=== PATIENT | female | born 1960 | race African-American/Black ===

== ENCOUNTER 2019-09-21 07:32 | Emergency (ER) | payer OTHER, SELFPAY ==
--- NOTE | 2019-09-21 08:00 | EDPHYS ---
Physician Documentation [facility] Name: Mary Mcmanus Age: 59 yrs Sex: Female : 1960 Arrival Date: 09/21/2019 Time: 07:36 Bed 19 Private MD: out of town, doctor ED Physician Narciso Colmenares HPI: 09/20 07:54 This 59 yrs old Black Female presents to ER via Ambulatory with complaints of Urinary cp Problem. 07:54 The patient presents with urinary symptoms, dysuria, hematuria. Onset: The cp symptoms/episode began/occurred 3 day(s) ago, and became worse last night. Associated signs and symptoms: Pertinent negatives: diarrhea, fever, nausea, vomiting, abdominal pain, back pain. Severity of symptoms: in the emergency department the symptoms are unchanged, despite home interventions. Historical: - Allergies: 07:47 No Known Allergies; ss - PMHx: 07:47 Hypertension; High Cholesterol; Diabetes; ss - Immunization history:: Adult Immunizations up to date. - Social history:: Smoking status: Patient denies any tobacco usage or history of. ROS: 07:55 Eyes: Negative for injury, pain, redness, and discharge. cp 07:55 Constitutional: Negative for body aches, chills, fever, poor PO intake. 07:55 Cardiovascular: Negative for chest pain. 07:55 Respiratory: Negative for cough, shortness of breath, wheezing. 07:55 Abdomen/GI: Negative for abdominal pain, nausea, vomiting, and diarrhea. 07:55 Back: Negative for pain at rest, pain with movement. 07:55 : Positive for hematuria, burning with urination. 07:55 All other systems are negative. Exam: 07:57 Head/Face: Normocephalic, atraumatic. cp 07:57 Constitutional: The patient appears in no acute distress, alert, awake, comfortable, non-toxic, well developed, well nourished. 07:57 Cardiovascular: Rate: normal. 07:57 Respiratory: the patient does not display signs of respiratory distress, Respirations: normal. 07:57 Abdomen/GI: Inspection: abdomen appears normal. 07:57 Back: CVA tenderness, is absent. Vital Signs: 07:46 BP 161 / 83; Pulse 75; Resp 16; Temp 98.6; Pulse Ox 100% on R/A; Weight 90.72 kg; em Height 5 ft. 4 in. (162.56 cm); Pain 0/10; 08:10 BP 153 / 74; em 07:46 Body Mass Index 34.33 (90.72 kg, 162.56 cm) em MDM: 07:42 Patient medically screened. cp 07:58 Differential diagnosis: urinary tract infection, pyelonephritis, sepsis. cp 07:59 Data reviewed: vital signs, nurses notes, lab test result(s), and as a result, I will cp discharge patient. 09/20 07:51 Order name: Urine Microscopic Only cp 09/20 07:58 Order name: Urine Dipstick--Ancillary (enter results) eb 09/20 07:51 Order name: Urine Dipstick-Ancillary (obtain specimen); Complete Time: 07:51 cp Administered Medications: No medications were administered Disposition: 10:50 Co-signature as Attending Physician, Narciso Colmenares MD I agree with the assessment and kdr plan of care. Disposition: 09/21/19 07:59 Discharged to Home. Impression: Urinary tract infection, site not specified. - Condition is Stable. - Discharge Instructions: Urinary Tract Infection, Adult. - Prescriptions for Pyridium 200 mg Oral Tablet - take 1 tablet by ORAL route every 8 hours for 3 days; 6 tablet. Bactrim DS 800- 160 mg Oral Tablet - take 1 tablet by ORAL route every 12 hours for 5 days; 10 tablet. - Medication Reconciliation Form, Thank You Letter, Antibiotic Education, Prescription Opioid Use form. - Follow up: Private Physician; When: 2 - 3 days; Reason: Worsening of condition. - Problem is new. - Symptoms have improved. Signatures: Dispatcher [employer] Narciso Coffey MD MD [facility] Vick Lombardo RN RN Ashley Rock RN RN Taqueria Chanel PA PA cp Corrections: (The following items were deleted from the chart) 08: 07:59 09/21/2019 07:59 Discharged to Home. Impression: Urinary tract infection, site em not specified. Condition is Stable. Forms are Medication Reconciliation Form, Thank You Letter, Antibiotic Education, Prescription Opioid Use. Follow up: Private Physician; When: 2 - 3 days; Reason: Worsening of condition. Problem is new. Symptoms have improved. cp
--- NOTE | 2019-09-21 08:00 | ER ---
Nurse's Notes [facility] Name: Mary Mcmanus Age: 59 yrs Sex: Female : 1960 Arrival Date: 09/21/2019 Time: 07:36 Bed 19 Private MD: out of town, doctor Diagnosis: Urinary tract infection, site not specified Presentation: 09/20 07:46 Chief complaint: Patient states: Intermittent blood in urine x 3 days. Pt reports at first it was coffee colored, but now it's pink/red. Denies pain/ fever. Coronavirus screen: Proceed with normal triage. Patient denies a cough. Patient denies shortness of breath or difficulty breathing. Patient denies measured and/or subjective temperature greater than 100.4F prior to today's visit. Patient denies travel on a cruise ship or to a country the [facility] currently lists as an affected area. Patient denies contact with known and/or suspected case of COVID-19. Ebola Screen: Patient denies exposure to infectious person. Patient denies travel to an Ebola-affected area in the 21 days before illness onset. Initial Sepsis Screen: Does the patient meet any 2 criteria? No. Patient's initial sepsis screen is negative. Does the patient have a suspected source of infection? No. Patient's initial sepsis screen is negative. Risk Assessment: Do you want to hurt yourself or someone else? Patient reports no desire to harm self or others. Onset of symptoms was September 2019. 07:46 Method Of Arrival: Ambulatory ss 07:46 Acuity: LEYLA 3 ss Historical: - Allergies: 07:47 No Known Allergies; ss - PMHx: 07:47 Hypertension; High Cholesterol; Diabetes; ss - Immunization history:: Adult Immunizations up to date. - Social history:: Smoking status: Patient denies any tobacco usage or history of. Screenin:48 Abuse screen: Denies threats or abuse. Denies injuries from another. Nutritional ss screening: No deficits noted. Tuberculosis screening: Never had TB. Fall Risk None identified. Assessment: 07:48 Reassessment: Patient ambulated to restroom to obtain urine specimen with steady gait. ss 07:50 General: Appears in no apparent distress. comfortable, Behavior is calm, cooperative, em appropriate for age, Denies fever. Pain: Denies pain. Neuro: Level of Consciousness is awake, alert, obeys commands, Oriented to person, place, time, situation, Appropriate for age. Cardiovascular: Capillary refill < 3 seconds Patient's skin is warm and dry. Respiratory: Airway is patent Respiratory effort is even, unlabored, Respiratory pattern is regular, symmetrical. GI: Abdomen is round non-distended. : Urine is slightly cloudy and yellow Reports burning with urination, since 2 days. Derm: Skin is intact, is healthy with good turgor, Skin is pink, warm \T\ dry. Musculoskeletal: Capillary refill < 3 seconds, Range of motion: intact in all extremities. Vital Signs: 07:46 BP 161 / 83; Pulse 75; Resp 16; Temp 98.6; Pulse Ox 100% on R/A; Weight 90.72 kg; em Height 5 ft. 4 in. (162.56 cm); Pain 0/10; 08:10 BP 153 / 74; em 07:46 Body Mass Index 34.33 (90.72 kg, 162.56 cm) em ED Course: 07:36 Patient arrived in ED. mr 07:36 out of town, doctor is Private Physician. mr 07:38 Taqueria Barksdale PA is PHCP. cp 07:38 Taqueria Chance MD is Attending Physician. cp 07:40 Vick Lombardo, KHRIS is Primary Nurse. em 07:42 Attending Physician role handed off by Taqueria Chance MD cp 07:42 Narciso Colmenares MD is Attending Physician. cp 07:47 Triage completed. ss 07:47 Arm band placed on right wrist. ss 07:48 Patient has correct armband on for positive identification. Bed in low position. ss 07:50 Urine collected: clean catch specimen, cloudy. em 08:09 No provider procedures requiring assistance completed. Patient did not have IV access em during this emergency room visit. Administered Medications: No medications were administered Outcome: 07:59 Discharge ordered by . cp 08:09 Discharged to home ambulatory. em 08:09 Condition: good 08:09 Discharge instructions given to patient, Instructed on discharge instructions, follow up and referral plans. medication usage, Demonstrated understanding of instructions, follow-up care, medications, Prescriptions given X 2. 08:11 Patient left the ED. em Addendum: 09/24/2019 07:35 Addendum: Culture Results: Positive urine culture. No further action required. Bacteria a a5 sensitive to prescribed antibiotic. Signatures: Amy ClarosVick, RN RN em Sindy Vyas, RN RN aa5 Ashley Null RN RN ss Taqueria Barksdale PA PA cp Corrections: (The following items were deleted from the chart) 09/20 07:56 07:46 Resp 16bpm; Temp 98.6F; 90.72 kg; Height 5 ft. 4 in.; BMI: 34.3; Pain 0/10; em
[2019-09-21 08:12] LABS: Urine Blood 3+ (NEG); Urine Glucose NEGATIVE (NEG); Urine Protein NEGATIVE (NEG); Urine Specific Gravity 1.015 (1.005-1.030); Urine pH 5.5 (5.0-7.0)
[2019-09-21 08:17] VITALS: TEMP 98.6; O2SAT 100
[2019-09-21 08:17] LABS: Urine Bacteria >50 /HPF (<20); Urine Culture Reflex Order REFLEXED; Urine RBC 20-50 /HPF (NONE SEEN)
[2019-09-21 08:18] VITALS: BP 153/74
== END 2019-09-21 08:11 | disposition home or self-care (01) ==
LOC: ER 07:32
DX: N39.0 Urinary tract infection, site not specified (principal)
CPT/HCPCS: 81003; 81015; 87077; 87086; 87088; 87186; 99283

== ENCOUNTER 2019-10-28 18:04 | Emergency (ER) | payer OTHER ==
[2019-10-28] MEDS ORDERED: KETOROLAC 30 MG/ML INJ ONE (20:47)
--- NOTE | 2019-10-28 20:50 | RAD REPORT ---
EXAM DESCRIPTION: RAD - Elbow Right 2 View - 10/28/2019 8:36 pm CLINICAL HISTORY: PAIN COMPARISON: No comparisons FINDINGS: No bone or joint abnormality detected.
--- NOTE | 2019-10-28 21:34 | ER ---
Nurse's Notes [facility] Name: Mary Mcmanus Age: 59 yrs Sex: Female : 1960 Arrival Date: 10/28/2019 Time: 18:09 Bed 11 Private MD: None, None Diagnosis: Arthritis right elbow Presentation: 10/27 18:46 Chief complaint: Patient states: R elbow pain x 1 month. No known injury. Coronavirus ss screen: Proceed with normal triage. Ebola Screen: Patient denies exposure to infectious person. Patient denies travel to an Ebola-affected area in the 21 days before illness onset. Initial Sepsis Screen: Does the patient meet any 2 criteria? No. Patient's initial sepsis screen is negative. Does the patient have a suspected source of infection? No. Patient's initial sepsis screen is negative. Risk Assessment: Do you want to hurt yourself or someone else? Patient reports no desire to harm self or others. Onset of symptoms was September 2019. 18:46 Method Of Arrival: Ambulatory ss 18:46 Acuity: LEYLA 5 ss Historical: - Allergies: 18:49 No Known Allergies; ss - PMHx: 18:49 Diabetes; High Cholesterol; Hypertension; ss - Immunization history:: Adult Immunizations up to date. - Social history:: Smoking status: Patient denies any tobacco usage or history of. Screenin:03 Abuse screen: Denies threats or abuse. Denies injuries from another. Nutritional lp1 screening: No deficits noted. Tuberculosis screening: No symptoms or risk factors identified. Fall Risk None identified. Assessment: 20:40 General: Appears in no apparent distress. comfortable, Behavior is calm, cooperative, lp1 appropriate for age. Pain: Complains of pain in right elbow Pain currently is 6 out of 10 on a pain scale. Quality of pain is described as aching, Aggravated by repositioning. Neuro: No deficits noted. Cardiovascular: Patient's skin is warm and dry. Respiratory: Respiratory effort is even, unlabored. GI: No signs and/or symptoms were reported involving the gastrointestinal system. : No signs and/or symptoms were reported regarding the genitourinary system. EENT: No signs and/or symptoms were reported regarding the EENT system. Derm: Skin is intact, Skin is dry, Skin is normal. Musculoskeletal: Circulation, motion, and sensation intact. Reports pain in right elbow since 1 month ago. Vital Signs: 18:46 Pulse 70; Resp 16; Temp 97.0(TE); Pulse Ox 100% on R/A; Weight 90.72 kg; Height 5 ft. 4 ss in. (162.56 cm); 18:49 BP 134 / 58; ss 18:46 Body Mass Index 34.33 (90.72 kg, 162.56 cm) ED Course: 18:09 Patient arrived in ED. dp 18:10 None, None is Private Physician. dp 18:49 Triage completed. ss 18:49 Arm band placed on right wrist. ss 19:18 Benitez Kaba MD is Attending Physician. tw4 19:21 Frank Vzaquez, RN is Primary Nurse. sg 20:37 Elbow Right 2 View XRAY In Process Unspecified. EDMS 21:03 Patient has correct armband on for positive identification. lp1 21:30 No provider procedures requiring assistance completed. Patient did not have IV access lp1 during this emergency room visit. Administered Medications: 20:50 Drug: TORadol 30 mg Route: IM; Site: left deltoid; lp1 21:30 Follow up: Response: Pain is decreased lp1 Outcome: 21:33 Discharge ordered by . tw4 21:35 Discharged to home ambulatory. lp1 21:35 Condition: good 21:35 Discharge instructions given to patient, Instructed on discharge instructions, follow up and referral plans. medication usage, Demonstrated understanding of instructions, follow-up care, medications, Prescriptions given X 1. 21:40 Patient left the ED. lp1 Signatures: Dispatcher [employer] EDCA Frank Vazquez RN RN Ashley Null RN RN Ashley Kaiser RN RN lp1 Benitez Kaba MD MD [facility] Negro Kaiser dp Corrections: (The following items were deleted from the chart) 21:50 21:50 Patient left the ED. lp1 lp1
--- NOTE | 2019-10-28 21:34 | EDPHYS ---
Physician Documentation [facility] Name: aMry Mcmanus Age: 59 yrs Sex: Female : 1960 Arrival Date: 10/28/2019 Time: 18:09 Bed 11 Private MD: None, None ED Physician Benitez Kaba HPI: 10/28 02:07 This 59 yrs old Black Female presents to ER via Ambulatory with complaints of Arm Pain. tw4 02:07 The patient or guardian complains of pain, that is acute. The complaints affect the tw4 right elbow. Context: The problem was sustained at home. Onset: The symptoms/episode began/occurred 3 week(s) ago. Modifying factors: The symptoms are alleviated by nothing. the symptoms are aggravated by nothing. The patient has not experienced similar symptoms in the past. Historical: - Allergies: 10/27 18:49 No Known Allergies; ss - PMHx: 18:49 Diabetes; High Cholesterol; Hypertension; ss - Immunization history:: Adult Immunizations up to date. - Social history:: Smoking status: Patient denies any tobacco usage or history of. ROS: 10/28 02:07 Constitutional: Negative for fever, chills, and weight loss, Eyes: Negative for injury, tw4 pain, redness, and discharge, Cardiovascular: Negative for chest pain, palpitations, and edema, Respiratory: Negative for shortness of breath, cough, wheezing, and pleuritic chest pain, Abdomen/GI: Negative for abdominal pain, nausea, vomiting, diarrhea, and constipation, Skin: Negative for injury, rash, and discoloration, Neuro: Negative for headache, weakness, numbness, tingling, and seizure. MS/extremity: Positive for decreased range of motion, pain, Negative for injury or acute deformity. Exam: 02:07 Constitutional: This is a well developed, well nourished patient who is awake, alert, tw4 and in no acute distress. Head/Face: Normocephalic, atraumatic. Chest/axilla: Normal chest wall appearance and motion. Nontender with no deformity. No lesions are appreciated. Cardiovascular: Regular rate and rhythm with a normal S1 and S2. No gallops, murmurs, or rubs. Normal PMI, no JVD. No pulse deficits. Respiratory: Lungs have equal breath sounds bilaterally, clear to auscultation and percussion. No rales, rhonchi or wheezes noted. No increased work of breathing, no retractions or nasal flaring. Abdomen/GI: Soft, non-tender, with normal bowel sounds. No distension or tympany. No guarding or rebound. No evidence of tenderness throughout. Back: No spinal tenderness. No costovertebral tenderness. Full range of motion. Neuro: Awake and alert, GCS 15, oriented to person, place, time, and situation. Cranial nerves II-XII grossly intact. Motor strength 5/5 in all extremities. Sensory grossly intact. Cerebellar exam normal. Normal gait. Psych: Awake, alert, with orientation to person, place and time. Behavior, mood, and affect are within normal limits. 02:07 Musculoskeletal/extremity: Extremities: noted in the right elbow: Vital Signs: 10/27 18:46 Pulse 70; Resp 16; Temp 97.0(TE); Pulse Ox 100% on R/A; Weight 90.72 kg; Height 5 ft. 4 ss in. (162.56 cm); 18:49 BP 134 / 58; ss 18:46 Body Mass Index 34.33 (90.72 kg, 162.56 cm) ss MDM: 19:19 Patient medically screened. tw4 10/28 02:07 Differential diagnosis: dislocation. Data reviewed: vital signs, nurses notes. Data tw4 reviewed: radiologic studies, plain films. Data interpreted: Pulse oximetry: Interpretation: normal. Counseling: I had a detailed discussion with the patient and/or guardian regarding: the historical points, exam findings, and any diagnostic results supporting the discharge/admit diagnosis, radiology results. 10/27 20:03 Order name: Elbow Right 2 View XRAY; Complete Time: 21:32 tw4 Administered Medications: 10/27 20:50 Drug: TORadol 30 mg Route: IM; Site: left deltoid; lp1 21:30 Follow up: Response: Pain is decreased lp1 Disposition: 10/28/19 21:33 Discharged to Home. Impression: Arthritis right elbow. - Condition is Stable. - Discharge Instructions: Arthritis. - Prescriptions for Tramadol 50 mg Oral Tablet - take 1 tablet by ORAL route every 8 hours as needed; 12 tablet. - Medication Reconciliation Form, Thank You Letter, Antibiotic Education, Prescription Opioid Use form. - Follow up: Private Physician; When: Upon discharge from the Emergency Department; Reason: Recheck today's complaints, Continuance of care, Re-evaluation by your physician. - Problem is new. - Symptoms have improved. Signatures: Dispatcher [employer] EDMS Ashley Null RN RN ss Ashley Kaiser RN RN lp1 Benitez Kaba MD MD tw4 Corrections: (The following items were deleted from the chart) 21:50 21:33 10/28/2019 21:33 Discharged to Home. Impression: Arthritis right elbow. Condition lp1 is Stable. Forms are Medication Reconciliation Form, Thank You Letter, Antibiotic Education, Prescription Opioid Use. Follow up: Private Physician; When: Upon discharge from the Emergency Department; Reason: Recheck today's complaints, Continuance of care, Re-evaluation by your physician. Problem is new. Symptoms have improved. tw4
[2019-10-28 21:57] VITALS: TEMP 97; O2SAT 100
[2019-10-28 21:58] VITALS: BP 134/58
== END 2019-10-28 21:50 | disposition home or self-care (01) ==
LOC: ER 18:04
DX: M19.021 Primary osteoarthritis, right elbow (principal)
CPT/HCPCS: 96372; 99283